=== PATIENT | male | born 1945 | race Caucasian/White ===

== ENCOUNTER → 2019-10-16 | Outpatient (CLI) | payer OTHER ==
[~2019-10-16] MED LIST: Cosamin Ds Tab1 EACH PO
[2019-10-16 17:48] LABS: BASOPHILS ABSOLUTE AUTO 0.03 K/mm3 (0.00-0.23); BASOPHILS PERCENT AUTO 0 % (0-2); EOSINOPHILS ABSOLUTE AUTO 0.13 K/mm3 (0.00-0.68); EOSINOPHILS PERCENT AUTO 2 % (0-6); Hematocrit 45.4 % (37.0-53.0); Hemoglobin 14.7 g/dL (13.5-17.5); IMMATURE GRAN ABSOLUTE AUTO 0.02 K/mm3 (0.00-0.10); IMMATURE GRAN PERCENT AUTO 0 % (0-1); LYMPHOCYTES ABSOLUTE AUTO 0.84 K/mm3 (0.84-5.20); LYMPHOCYTES PERCENT AUTO 13 % (21-46); MONOCYTES PERCENT AUTO 6 % (4-13); Mean Corpuscular HGB 29.7 pg (26.0-34.0); Mean Corpuscular HGB Conc 32.4 g/dL (31.5-36.5); Mean Corpuscular Volume 92 fL (80-100); Mean Platelet Volume 10.8 fL (9.1-12.4); NEUTROPHILS ABSOLUTE AUTO 5.29 K/mm3 (1.96-9.15); NEUTROPHILS PERCENT AUTO 79 % (41-73); Platelet Count 182 K/mm3 (150-400); RDW Coefficient Variation 12.9 % (11.7-14.2); RDW Standard Deviation 43.7 fL (35.1-46.3); Red Blood Cell Count 4.95 M/mm3 (4.30-5.90); White Blood Cell Count 6.71 K/mm3 (4.00-11.30)
[2019-10-16 18:54] LABS: Alanine Aminotransfer (ALT/SGP 19 U/L (12-78); Albumin, Blood 3.6 g/dL (3.4-5.0); Albumin/Globulin Ratio 0.8 (0.8-1.8); Alk Phos 102 U/L (50-136); Anion Gap 7 mmol/L (6-16); Aspartate Aminotrans (AST/SGOT 21 U/L (12-37); Bilirubin, Total 0.4 mg/dL (0.1-1.0); Blood Urea Nitrogen 16 mg/dL (8-24); Bun/Creatinine Ratio 14.7 (12.0-20.0); CHOL/HDL RATIO 3.8; CO2, Blood 26 mmol/L (21-32); Calcium, Blood 8.7 mg/dL (8.5-10.1); Chloride, Blood 107 mmol/L (98-108); Cholesterol 165 mg/dL (50-200); Creatinine, Blood 1.09 mg/dL (0.60-1.20); Globulin, Blood 4.3 g/dL (2.2-4.0); Glomerular Filtration Rate >60 (60-); Glucose, Blood 129 mg/dL (70-99); HDL Cholesterol 44 mg/dL (>39); LDL/HDL RATIO 2.1; Low Density Lipoprotein Chol 90 mg/dL (0-110); Potassium, Blood 3.8 mmol/L (3.5-5.5); Sodium, Blood 140 mmol/L (136-145); Total Protein, Blood 7.9 g/dL (6.4-8.2); Triglycerides 154 mg/dL (30-160); Very Low Density Lipoprot Chol 30 mg/dL (6-32)
== END | disposition home or self-care (01) ==
LOC: LAB SHORT 15:59
PROVIDERS: Nurse Practitioner Family
DX: E78.5 Hyperlipidemia, unspecified (principal); G30.9 Alzheimer's disease, unspecified
CPT/HCPCS: 80053; 80061; 85025

== ENCOUNTER 2020-01-17 09:30 | Emergency (ER) | payer OTHER ==
[~2020-01-17] VITALS: Ht 177.8 cm; Wt 68.0 kg
[2020-01-17] MEDS ORDERED: BIOTIN1 MG PO (09:45)
[2020-01-17] MEDS ORDERED: Vitamin B-121000 MCG PO (09:46)
[2020-01-17] MEDS ORDERED: FISH OIL 1,2001 EAC7 PO (09:46)
[2020-01-17] MEDS ORDERED: SERT50 PO (09:46)
[2020-01-17] MEDS ORDERED: Vitamin D2000 UNIT PO (09:47)
[2020-01-17] MEDS ORDERED: MELATONIN5 M1 PO (09:47)
[2020-01-17] MEDS ORDERED: NAMZARIC PO (09:48)
[2020-01-17] MEDS ORDERED: QUET100 PO (09:48)
[2020-01-17 11:50] LABS: Calcium, Ionized (POC) 1.11 mmol/L (1.10-1.46); Chloride (POC) 100 mmol/L (98-108); Creatinine (POC) 0.9 mg/dL (0.8-1.3); Glucose (ISTAT POC) 85 mg/dL (70-99); Hemoglobin (POC) 16.3 g/dL (13.5-17.5); Potassium (POC) 3.8 mmol/L (3.5-5.5); Sodium (POC) 141 mmol/L (135-148); Total CO2 (POC) 26 mmol/L (21-32)
[2020-01-19] MEDS ORDERED: ACET325 PO (22:12)
== END 2020-01-17 13:26 | disposition home or self-care (01) ==
LOC: ER 09:30
PROVIDERS: Emergency Medicine
DX: U07.1 COVID-19 (principal); R09.02 Hypoxemia; F03.90 Unspecified dementia, unspecified severity, without behavioral disturbance, psychotic disturbance, mood disturbance, and anxiety; Z91.14 Patient's other noncompliance with medication regimen; Z88.0 Allergy status to penicillin; Z79.899 Other long term (current) drug therapy
CPT/HCPCS: 80047; 85014; 99284

== ENCOUNTER 2020-01-19 09:59 | Inpatient (IN) | payer OTHER ==
[~2020-01-19] VITALS: Ht 180.3 cm; Wt 81.7 kg
[~2020-01-19 09:59] MED LIST changes: +BIOTIN1 MG PO; +FISH OIL 1,2001 EAC7 PO; +MELATONIN5 M1 PO; +NAMZARIC PO; +QUET100 PO; +SERT50 PO; +Vitamin B-121000 MCG PO; +Vitamin D2000 UNIT PO
[2020-01-19 10:38] LABS: BASOPHILS ABSOLUTE AUTO 0.01 K/mm3 (0.00-0.23); BASOPHILS PERCENT AUTO 0 % (0-2); EOSINOPHILS PERCENT AUTO 0 % (0-6); Hematocrit 48.8 % (37.0-53.0); IMMATURE GRAN ABSOLUTE AUTO 0.03 K/mm3 (0.00-0.10); IMMATURE GRAN PERCENT AUTO 1 % (0-1); LYMPHOCYTES ABSOLUTE AUTO 0.75 K/mm3 (0.84-5.20); LYMPHOCYTES PERCENT AUTO 12 % (21-46); MONOCYTES ABSOLUTE AUTO 0.68 K/mm3 (0.16-1.47); MONOCYTES PERCENT AUTO 11 % (4-13); Mean Corpuscular HGB Conc 32.8 g/dL (31.5-36.5); Mean Corpuscular Volume 91 fL (80-100); Mean Platelet Volume 11.5 fL (9.1-12.4); NEUTROPHILS ABSOLUTE AUTO 4.61 K/mm3 (1.96-9.15); NEUTROPHILS PERCENT AUTO 76 % (41-73); Platelet Count 165 K/mm3 (150-400); RDW Coefficient Variation 13.2 % (11.7-14.2); RDW Standard Deviation 44.4 fL (35.1-46.3); Red Blood Cell Count 5.34 M/mm3 (4.30-5.90); White Blood Cell Count 6.08 K/mm3 (4.00-11.30)
[2020-01-19 11:02] LABS: Albumin, Blood 3.4 g/dL (3.4-5.0); Albumin/Globulin Ratio 0.7 (0.8-1.8); Bilirubin, Total 0.9 mg/dL (0.1-1.0); Bun/Creatinine Ratio 30.8 (12.0-20.0); Creatinine, Blood 1.3 mg/dL (0.60-1.20); Globulin, Blood 4.7 g/dL (2.2-4.0); Potassium, Blood 3.8 mmol/L (3.5-5.5); Total Protein, Blood 8.1 g/dL (6.4-8.2)
--- NOTE | 2020-01-19 19:19 | NUR ---
Shift Summary Received report from [facility]-RN. Patient arrived to unit via [facility] @ 0275. A/Ox self, nonverbal, responds to painful stimuli with moans. Appears to have either tremors or shivering, oral temperature 103.3. Tylenol OR given. Wounds throughout legs, appears to be bursted blisters, skin is beefy red. Abx ointment applied and covered with nonadherent dressing/paper tape. 87-88% on RA, currently on 2L NC with sats > 92%. Photos of wounds in chart. TQ2. NS @ 75 mLs/hr. Call light in reach, bed in lowest position, bed alarm on. To note, patient has baseline dementia. Report given to oncoming RN.
[2020-01-19] MEDS ORDERED: ALPR.25 PO (22:12)
[2020-01-19] MEDS ORDERED: ACETAMINOPHEN PR (22:12)
[2020-01-19] MEDS ORDERED: BISA10S PR (22:13)
[2020-01-19] MEDS ORDERED: PHOSPHASODA PR (22:15)
[2020-01-19] MEDS ORDERED: LOPE2C PO (22:16)
[2020-01-19] MEDS ORDERED: DULCOLAX400 MG/5 M PO (22:16)
[2020-01-19] MEDS ORDERED: WOUND CLEANSER TOP (22:17)
[2020-01-19] MEDS ORDERED: NYSTATIN15 GM TOP (22:18)
[2020-01-19] MEDS ORDERED: LEMON BALM TOP (22:19)
[2020-01-19] MEDS ORDERED: Seroquel Xr50 MG PO (22:21)
--- NOTE | 2020-01-20 04:10 | NUR ---
SHIFT SUMMARY NO ACUTE CHANGES THIS SHIFT. PT RESPONDS TO PRESSURE, OR WHEN TRYING TO DO CARE, WILL TENSE BODY AND PUSH AGAINST WHEN REPOSTIONING. PT DID NOT SPEAK FOR THIS RN THIS SHIFT AND THIS RN IS NOT ABLE TO ASSESS ORIENTATION. THIS RN SPOKE WITH PT'S , ISABELLE, SHE STATES THAT THE PT DOES NOT WISH TO BE "PUT ON A MACHINE" AND HEALTHCARE DECISIONS SHOULD BE BROUGHT TO HER PRIOR TO DOING THEM. PT'S STATES SHE WILL CALL AGAIN IN THE MORNING FOR ANOTHER UPDATE. PT REPOSITIONED Q2H WITH PILLOWS. PT IS LAYING IN BED WITH EYES CLOSED, EVEN AND UNLABORED RESPIRATIONS, 2LNC. BED IS IN LOWERED POSITION WITH ALARM IN PLACE. CALL LIGHT AND PERSONAL ITEMS WITH IN REACH. NO APPARENT NEEDS OR DISTRESS AT THIS TIME, WILL CONTINUE TO MONITOR UNTIL REPORT GIVEN TO DAY RN.
[2020-01-20 05:40] LABS: BASOPHILS ABSOLUTE AUTO 0.01 K/mm3 (0.00-0.23); BASOPHILS PERCENT AUTO 0 % (0-2); EOSINOPHILS PERCENT AUTO 0 % (0-6); Hematocrit 43.4 % (37.0-53.0); Hemoglobin 14.1 g/dL (13.5-17.5); IMMATURE GRAN ABSOLUTE AUTO 0.02 K/mm3 (0.00-0.10); IMMATURE GRAN PERCENT AUTO 0 % (0-1); LYMPHOCYTES ABSOLUTE AUTO 0.68 K/mm3 (0.84-5.20); LYMPHOCYTES PERCENT AUTO 13 % (21-46); MONOCYTES ABSOLUTE AUTO 0.55 K/mm3 (0.16-1.47); MONOCYTES PERCENT AUTO 10 % (4-13); Mean Corpuscular HGB 29.9 pg (26.0-34.0); Mean Corpuscular HGB Conc 32.5 g/dL (31.5-36.5); Mean Corpuscular Volume 92 fL (80-100); Mean Platelet Volume 11.1 fL (9.1-12.4); NEUTROPHILS ABSOLUTE AUTO 4.08 K/mm3 (1.96-9.15); NEUTROPHILS PERCENT AUTO 76 % (41-73); Platelet Count 126 K/mm3 (150-400); RDW Coefficient Variation 13.1 % (11.7-14.2); RDW Standard Deviation 44.8 fL (35.1-46.3); Red Blood Cell Count 4.72 M/mm3 (4.30-5.90); White Blood Cell Count 5.34 K/mm3 (4.00-11.30)
[2020-01-20 05:58] LABS: Anion Gap 5 mmol/L (6-16); Blood Urea Nitrogen 26 mg/dL (8-24); Bun/Creatinine Ratio 28.7 (12.0-20.0); CO2, Blood 28 mmol/L (21-32); Calcium, Blood 8.2 mg/dL (8.5-10.1); Chloride, Blood 113 mmol/L (98-108); Creatinine, Blood 0.91 mg/dL (0.60-1.20); Glomerular Filtration Rate >60 (60-); Glucose, Blood 83 mg/dL (70-99); Potassium, Blood 3.7 mmol/L (3.5-5.5); Sodium, Blood 146 mmol/L (136-145)
--- NOTE | 2020-01-20 15:28 | NUR ---
CODE STATUS ISABELLE CALLED AND STATED THAT PATIENT HAD EXPRESSED HE "DOES NOT WANT TO SURVIVE ON MACHINE." EXPLAINED FULL CODE STATUS AND MEASURES TAKEN IN THE EVENT PATIENT'S HEART WAS TO STOP (CHEST COMPRESSION, MEDICATION, AND/OR INTUBATION). AFTER CONSULTING WITH KIDS, IS IN AGREEMENT TO CHANGE CODE STATUS TO DNR BECAUSE AND KIDS ARE WANTING PATIENT TO GO COMFORTABLY. REQUEST RELAYED TO DR. BAEZ.
--- NOTE | 2020-01-20 16:37 | NUR ---
Shift Summary Patient on 1L NC with saturations 92-93%, breathing equal/unlabored. Easily startles and resists care given by staff. 2 max assist for safety. Requires feeding assist with meals. Mostly nonverbal with grunts, occassionally states "Damn!" when being repositioned or during nelli-care. Meds preferrably crushed in applesauce and spoon fed. Low grade fever this am, otherwise, VSS. No new concerns. Tolerating some PO intake. Will continue to monitor.
--- NOTE | 2020-01-21 04:47 | NUR ---
SHIFT SUMMARY PT MUCH MORE ALERT THIS SHIFT. PT HAS DEMENTIA AT BASELINE. ORIENTED ONLY TO SELF. PT ANSWERING SIMPLE QUESTIONS THIS EVENING. MOSTLY WITH YES OR NO BUT WILL OCCASSIONALLY ANSWER WITH A SHORT SENTENCE. PT FEARFUL WITH CARE, PUSHES STAFF AWAY WITH ATTEMPTS TO PROVIDE CARE. PT ALSO BECOMES TREMULOUS WHEN STAFF ARE PROVIDING CARE. MULTIPLE BLISTER LIKE ABRASIONS SCATTERED ON PT'S BODY. DRESSINGS REMAINED C/D/I. PT ON 1 L NC, O2 SATS IN THE LOW TO MID 90'S. NO SOB NOTED, RESPIRATIONS EVEN AND UNLABORED. OCCASSIONAL DRY COUGH. PT AFEBRILE, VITAL SIGNS STABLE. NO ACUTE CHANGES THIS SHIFT. WILL CONTINUE TO MONITOR.
[2020-01-21 05:40] LABS: Hemoglobin 13.4 g/dL (13.5-17.5); Mean Corpuscular HGB 29.1 pg (26.0-34.0); Mean Corpuscular HGB Conc 32.7 g/dL (31.5-36.5); Mean Corpuscular Volume 89 fL (80-100); Mean Platelet Volume 11.3 fL (9.1-12.4); Platelet Count 138 K/mm3 (150-400); RDW Coefficient Variation 13.1 % (11.7-14.2); RDW Standard Deviation 42.8 fL (35.1-46.3); Red Blood Cell Count 4.61 M/mm3 (4.30-5.90); White Blood Cell Count 5.21 K/mm3 (4.00-11.30)
[2020-01-21 06:00] LABS: Anion Gap 6 mmol/L (6-16); Blood Urea Nitrogen 24 mg/dL (8-24); Bun/Creatinine Ratio 27.1 (12.0-20.0); CO2, Blood 24 mmol/L (21-32); Chloride, Blood 116 mmol/L (98-108); Creatinine, Blood 0.89 mg/dL (0.60-1.20); Glomerular Filtration Rate >60 (60-); Glucose, Blood 110 mg/dL (70-99); Potassium, Blood 3.6 mmol/L (3.5-5.5); Sodium, Blood 146 mmol/L (136-145)
--- NOTE | 2020-01-21 15:59 | NUR ---
Baseline Function: Call placed to [facility]. Spoke with Apryl. She states that pt is ambulatory at baseline. He is able to walk, being "fairly stable." He does not use a walker or wheelchair, however, he does not want to get up for meals. He sleeps in until 10am and then likes to eat in bed. Recently, pt has been having a fairly low intake and staff has encouraged eating. Pt is on a regular diet and thin liquids at the facility. Pt is incontinent sometimes. Pt able to perform transfers independently, he is able to feed himself and does not need assistance with eating. Apryl notes a decrease in his appetite over the last couple months. Pt is combative at times - Apryl states, "especially if you're pushing him to do anything, like take more bites of food, he will swing at you." Pt speaks at times, but usually only 2-3 words at a time, and usually only when he is asked questions. In review of hospital admission and progress so far, pt has been changed from regular diet to pureed foods and nectar thick liquids. Sharron, speech therapist, writes in her note that poor swallow ability is likely a progression of his demented state. Call to his , Erica, to review this. Message left for a call back. Pt does not have a POLST form at the facility. He is DNR/DNI here at the hospital. POLST would be a valuable document for him to have at the facility if he is no longer a full code status. Will remain available.
--- NOTE | 2020-01-21 16:51 | NUR ---
Spiritual care intial note: Mr. Palencia was non-verbal with me. Throughout my visit, he was reaching and grabbing unseen things in the air in front of him. He appeared calm with no signs of pain. No family present. Per chart, he is Baptism. Prayer provided. I will remain available to pt and family.
--- NOTE | 2020-01-21 19:25 | NUR ---
Shift Summary No changes to patient condition. Attempted to wean off oxygen, 87-89% on RA. Patient remains on 1L O2 with sats @ 92%. Moved patient to room 307. Bed alarm on and bed in lowest position. Call light nearby. NS @ 75 mLs/hr. Report given to oncoming RN.
--- NOTE | 2020-01-22 05:53 | NUR ---
PT positive for covid 19 continues on 1 l oxygen & IVF. PT with very poor oral intake buts & sips honey thick liquids needed fed. Baseline dementia, resists cares pinching & grabbing staff when personal cares are given. PT with multiple skin issues, skin care with karacleanse & calmaseptic provided covered with foam to prevent further skin breakdown. Multiple scabbed blisters present with dry protective dressing present.
--- NOTE | 2020-01-22 17:57 | NUR ---
PT AOX1 AND VERY RIGID WITH ANY TURNING. PT NEEDS REPOSITIONED EVERY TWO HOURS AND FREQUENT CHANGES. PT HAD MEPIPLEX CHANGED OTHER WOUNDS ON LEGS LEFT OPEN TO AIR. PT DOES NOT CALL AND BED ALARM IS IN PLACE. PT HAS NOT BEEN IMPULISIVE AT THIS TIME. BED IN LOWEST POSITION WILL CONTINUE TO MONITOR.
--- NOTE | 2020-01-23 03:35 | NUR ---
74 year old Male with advanced dementia who was living at [facility] when Covid 19 outbreak occured. PT unable to speak or use call [place]. Dependent for all intake at risk for aspiration. Did drink some nectar to honey thick ensure, pudding applesauce with hob up 90 degrees in 1 to 1 feeding. occasional weak loose cough. PT has multiple skin issues to bilat le posterior thighs large areas which are open but not draining. HAs shear type injuries to sacral area which were cleansed with karacleanse and barrier cream and calmaseptic applied to denuded skin. Can be combative with cares pinched RNS hand very hard when changing attends. Room air sats greater than 90%. Occasional loose weak cough. DNR status.
--- NOTE | 2020-01-23 10:57 | NUR ---
HE IS SEVERELY DEMENTED. HE WAS SLEEPING RIGIDLY WITH JERKING MOVEMENTS, FISTS CLENCHED. HE MAD NOISES WHEN I SPOKE TO HIM BUT NO WORDS. HE FINALLY OPENED HIS EYES, BUT DID NOT KEEP THEM OPEN. HE ONLY TOOK A FEW BITES OF BREAKFAST. LATER HE TOOK HIS PILLS CRUSHED IN APPLESAUCE, AND A FEW ADDITIONAL BITES OF APPLESAUCE AFTERWARDS. IVF'S INFUSING. CONDOM CATH PUT ON FOR HEAVY INCONTINENCE. THE RED AREAS ON HIS THIGHS LOOK LIKE POPPED WATER BLISTERS TO ME BUT I DON'T KNOW WHAT THEY ARE OR HOW LONG THEY'VE BEEN THERE.
--- NOTE | 2020-01-23 15:14 | NUR ---
Case Conference Note Pt on isolation wing due to COVID-19 positive. Due to department restrictions this RN did not visit with Pt. Reviewed chart and discussed case with Bedside RN Felecia. Discussed ST assessment and findings. Felecia reports Pt is requiring assistance with all of his ADLs. Pt also experiences incontinence of bowel and bladder. Pt confused and sleeps for much of the shift. Pt tends to raise his arms and hands in the air frequently. After chart review Pt appears to experience behavioral disturbances as well. Pt's appetite has decreased. Called and spoke with Pt's spouse Erica. Provided update and engaged in therapeutic discussion regarding goals of care. Offered therapeutic listening as Erica reports having a discussion with Pt in the past regarding ever reaching the point of having an advanced stage illness. Erica report Pt would want to focus on comfort. Discussed comfort care as an option. Educated on comfort care and hospice philosophy with V/U made by Erica. Erica express wishes for Pt to go back to [facility] hospice. She reports inability to care for him and doesn't have space for him. Discussed hospice agencies to choose from. Erica reports plan to discuss further with children on hospice agency to choose from. Erica would also like to place Pt on comfort care starting today. Continued therapeutic listening and answered questions. Erica reports no other concerns at this time. Spoke with Dr Lara and discussed case. Placed order for comfort care, comfort care order set, and D/C maintenance medications per V/O from Dr Lara. Nursing order for I&O remain to keep track of Pt's bowel movements. PPS 30% FAST 7C ADLs 6/6 Pt appears to have advanced stage dementa and is showing further decline. Pt appears appropriate for hospice services. Palliative Care will remain available for symptom management.
--- NOTE | 2020-01-23 15:24 | NUR ---
I JUST RECEIVED A PHONE CALL FROM MATTHEW PEREZ FROM PALLIATIVE CARE. HE SPOKE WITH CARLOS'S AND . COMFORT CARE ORDERS RECEIVED. WILL START WITH HALDOL RECOMMENDED BY THE PALLIATIVE CARE NURSE. PHARMACY NOTIFIED THAT I WILL START WITH THE HALDOL. THEY WILL SEND UP A DOSE. HE HAS REMAINED TENSE. HE PULLED OFF HIS FIRST CONDOM CATHETER AND NOW HAS A 2ND ONE ON. TINCTURE OF BENZOIN USED ON THE SKIN UNDER THE ADHESIVE.
--- NOTE | 2020-01-23 17:44 | NUR ---
HIS STATUS CHANGED FROM DNR WITH TREATMENT TO COMFORT CARE, NO TREATMENT TODAY. SEE MY PREVIOUS NOTE. HE HAS RECEIVED HALDOL AND ATIVAN PO SO FAR. HIS CONSTANT MOVEMENTS HAVE BECOME LESS VIGOROUS BUT HE IS NOT CALM AND COMFORTABLE YET. WILL TRY ROXANOL NEXT. HE WAS CALM ENOUGH TO EAT SOME DINNER THOUGH. THAT IS AN IMPROVEMENT. THE SORT MANAGER FED HIM. HIS DEMENTIA IS SEVERE. HE IS UNABLE TO DO ANY CARE FOR HIMSELF. WE TRIED A CONDOM CATH TWICE TODAY. THEY BOTH CAME OFF WITH ALL HIS MOVEMENT AND SOME PULLING. IVF'S STOPPED. SL STILL IN PLACE. LOW GRADE FEVER THIS AM. TOOK MEDS CRUSHED IN APPLESAUCE. HE HAS BEEN TURNED AND CHANGED REGULARLY.
--- NOTE | 2020-01-23 18:14 | NUR ---
1500 NOTE WILL START COMFORT CARE MEDS WHEN AVAILABLE.
--- NOTE | 2020-01-23 18:23 | NUR ---
1800 NOTE HE IS RESTING QUIETLY NOW. HALDOL AND ATIVAN WERE GIVEN. ROXANOL WAS NOT TRIED YET. RESPIRATIONS ARE 20/MIN INSTEAD OF 26.
--- NOTE | 2020-01-23 18:30 | NUR ---
HE IS MOVING AND TIGHTENING HIS MUSCLES AGAIN. IT LOOKS LIKE A RESTLESS SLEEP NOW. HIS QUIET COMFORT DID NOT LAST LONG. 10 MG OF ROXANOL GIVEN. HE HAS NOT NEEDED ATROPINE OR SCOPALOMINE YET.
--- NOTE | 2020-01-23 20:12 | NUR ---
comfort care rounds PT clean dry on room air. Nonverbal
--- NOTE | 2020-01-23 22:27 | NUR ---
PT turned repositioned attends change large urine incontinent. He contines eyes closed nonverbal. Multiple skin issues related to moisture & shear. Drifts back to sleep after care rounds.
--- NOTE | 2020-01-24 02:39 | NUR ---
PT with advanced dementia changed to comfort care yesterday. He is nonverbal tense stiff rigid with tremors at times. Explained cares assess for unmet needs pain anxiety.
--- NOTE | 2020-01-24 03:45 | NUR ---
PT incontinent of large amts of urine no oral intake. MEdicated for pain with 20 mg roxinol for comfort measures. Shampooed hair cleansed marcial. Full dentures out. Continues nonverbal hith hand gestures. Continues to attempt to grab & pinch staff with cares.
--- NOTE | 2020-01-24 07:31 | NUR ---
HE IS RESTING COMFORTABLY WITH REGULAR RESPIRATIONS AT 16/MIN. MUSIC PLAYING NEAR HIM. I DID NOT TRY TO ROUSE HIM.
--- NOTE | 2020-01-24 08:08 | NUR ---
HE IS RESTING COMFORTABLY. HIS SLEEP IS RELAXED INSTEAD OF TENSE, TIGHT AND EXHAUSTING LIKE YESTERDAY.
--- NOTE | 2020-01-24 10:08 | NUR ---
HE WAS RESTLESS FOR JUST A FEW MINUTES AFTER WE CHANGED HIS INCONTINENT ATTENDS THEN RESTED WELL AGAIN.
--- NOTE | 2020-01-24 12:02 | NUR ---
NO CHANGES, RESTING COMFORTABLY WITH REGULAR RESPIRATIONS.
--- NOTE | 2020-01-24 14:05 | NUR ---
HE WAS MEDICATED WITH ROXANOL ALMOST AN HOUR AGO AFTER BEING CHANGED AGAIN. RESPIRATIONS ARE REGULAR ABOUT 16/MIN CURRENTLY. HIS APICAL IS DISTANT IT WAS YESTERDAY. SMALL AMTS OF SEROUS YELLOW DRAINAGE FROM HIS DORSAL THIGH WOUNDS ON THE KAHN PAD. HE HAS BEEN VOIDING BUT NO BM YET TODAY. ORAL CARE ATTEMPTED BUT HE WOULDN'T OPEN HIS MOUTH. WE ARE TRYING TO SOFTEN DEBRIS IN HIS MUSTACHE IN ORDER TO REMOVE IT.
--- NOTE | 2020-01-24 16:02 | NUR ---
HIS ARMS ARE REACHING OUT A LITTLE FOR VERY SHORT PERIODS. HE RESTS QUIETLY THE REST OF THE TIME. NO PO INTAKE TODAY. HE IS INCONTINENT OF URINE., NOT HEAVY YESTERDAY. RESPIRATIONS ARE REGULAR.
--- NOTE | 2020-01-24 18:25 | NUR ---
1800 NOTE HE IS RESTING COMFORTABLY. HE RECEIVED ROXANOL X1 TODAY. RESPIRATIONS REGULAR AND NOT TACHYPNEIC. BODY MUCH MORE RELAXED COMPARED TO YESTERDAY BEFORE COMFORT MEASURES STARTED.
--- NOTE | 2020-01-25 05:21 | NUR ---
SHIFT SUMMARY ASSUMED CARE OF PT AT 1900. PT IS ALERT BUT NOT ORIENTED AND DOES NOT RESPOND TO VERBAL STIMULATION. PT IS VERY STIFF WHEN HE IS TOUCHED OR MOVED AND WILL MOAN ACCASIONALLY PT WAS AGITATED AT THE BEGINNING OF THE SHIFT, MEDICATED PER EMAR AND PT SLEPT T/O THE NIGHT. PT WAS INCONTINENT OF URINE. PT WOUNDS ON LEGS AND BUTTOCK WERE CLEANED AND DRESSED. REPIRATIONS EVEN AND UNLABORED T/O THE NIGHT. CALL LIGHT IN REACH, BED IN LOWEST POSITION, WILL CONTINUE TO MONITOR.
[2020-01-25] MEDS ORDERED: ATROPINE SULFATE2 M3 SL (09:38)
[2020-01-25] MEDS ORDERED: LOPE2C PO (09:38)
[2020-01-25] MEDS ORDERED: MORP20L SL (09:39)
[2020-01-25] MEDS ORDERED: HALO2 PO (09:39)
--- NOTE | 2020-01-25 11:57 | NUR ---
DISCHARGE DISCHARGE INFORMATION PACKET GIVEN TO DRIVERS. REPORT CALLED TO JAZMIN AT [facility]. HOSPICE INFORMATION IN PACKET. IV REMOVED WITHOUT ISSUE. BELONGIGNS WITH PATIENT. PATIENT TRANSFERED VIA GURNEY.
== END 2020-01-25 11:33 | disposition home or self-care (01) | DRG 177 ==
LOC: ER 09:59 → MEDS 14:28
PROVIDERS: Emergency Medicine; ADMIT Internal Medicine
PROC: 8E0ZXY6 Isolation (ICD-10-PCS; 2020-01-19)
PROC: XW033E5 Introduction of Remdesivir Anti-infective into Peripheral Vein, Percutaneous Approach, New Technology Group 5 (ICD-10-PCS; principal; 2020-01-20)
DX: U07.1 COVID-19 (principal); J12.89 Other viral pneumonia; J96.01 Acute respiratory failure with hypoxia; G93.41 Metabolic encephalopathy; N17.9 Acute kidney failure, unspecified; E87.0 Hyperosmolality and hypernatremia; E86.0 Dehydration; F03.90 Unspecified dementia, unspecified severity, without behavioral disturbance, psychotic disturbance, mood disturbance, and anxiety; Z66 Do not resuscitate; Z51.5 Encounter for palliative care; Z68.25 Body mass index [BMI] 25.0-25.9, adult
CPT/HCPCS: 36415; 71045; 80048; 80053; 85025; 85027; 92526; 92610; 96360; 96361; 99284-25; J1650; J7030